=== PATIENT | male | born 1935 | race Caucasian/White ===

== ENCOUNTER 2017-02-09 02:27 | Inpatient (IN) | payer MEDICARE, OTHER ==
--- NOTE | ~2017-02-09 | HP ---
History And Physical [place] [id number] [facility] [place]. [address] NAME: LAMINE GARCIA : 35 STATUS : ADM IN [facility]#: [id number] AGE: 81 ADM/REG DATE : 02/09/17 MR#: [id number] REPORT SERV DATE: 02/09/17 DICTATED BY: KARLY ROBISON DATE: 02/09/17 REPORT STATUS : Draft TRANSCRIBED BY: MODL DATE: 02/09/17 DATE OF ADMISSION: 02/09/2017 CARDIOLOGY ADMISSION HISTORY AND PHYSICAL IDENTIFYING DATA: The patient is an 81-year-old man with a history of abdominal aortic aneurysm status post endovascular repair and no other significant cardiovascular history. CHIEF COMPLAINT: Acute onset substernal chest pain at approximately 1:30 a.m. on 02/09/2017. HISTORY OF PRESENT ILLNESS: Mr. Garcia is an 81-year-old man who denies any previous cardiovascular history. The patient does have a history of peripheral arterial disease. Specifically, the patient had an abdominal aortic aneurysm which was treated with an endovascular stent graft in the past. The patient had at one time been evaluated by Dr. Den Oglesby for symptoms of chest pain. The patient apparently had a cardiovascular workup which included an echocardiogram and a treadmill stress test. These studies were unremarkable according to the patient. The patient awoke early this morning with the abrupt onset of a crushing substernal chest pain. The patient rates this as 10/10 in intensity. He was brought to the [facility] Emergency Room. There, a 12-lead EKG was consistent with an acute evolving anterolateral ST segment elevation myocardial infarction. The patient was transferred emergently via [facility] to [facility] for primary percutaneous coronary intervention. PAST MEDICAL HISTORY: 1. Abdominal aortic aneurysm. 2. History of prostate cancer with radiation-induced proctitis and bladder issues. 3. Chronic pain. PAST SURGICAL HISTORY: 1. Endovascular aneurysm repair. 2. Cholecystectomy. 3. Multiple hernia repairs. 4. Excision of kidney stone. 5. Surgical procedure for rectal fissure. FAMILY HISTORY: Noncontributory. SOCIAL HISTORY: The patient reports a one-half pack per day smoking history times approximately 70 years. The patient denies alcohol use. He is a . ALLERGIES: THE PATIENT REPORTS AN ADVERSE REACTION TO "PAIN MEDICATIONS." HE DOES, HOWEVER, TAKE VICODIN AT HOME. ALSO, OF NOTE, THE PATIENT REPORTS A PREVIOUS ADVERSE REACTION TO ASPIRIN, WHICH CAUSES STOMACH PAIN EVEN AT LOW DOSES. HOME MEDICATIONS: An abbreviated list includes hydrocodone 5 mg/acetaminophen 325 mg one to History And Physical [place] [address] [place]. [address] NAME: LAMINE GARCIA : 35 STATUS : ADM IN PAT#: [id number] AGE: 81 ADM/REG DATE : 02/09/17 MR#: [id number] REPORT SERV DATE: 02/09/17 DICTATED BY: KARLY ROBISON DATE: 02/09/17 REPORT STATUS : Draft TRANSCRIBED BY: EARL DATE: 02/09/17 two tablets q.6 hours as needed for pain. The patient reports he also takes MiraLAX and milk of magnesia. He is on no other medications. REVIEW OF SYSTEMS: An abbreviated review of systems was performed. This is noncontributory except for the pertinent positives and negatives noted in the history of present illness above. PHYSICAL EXAMINATION: VITAL SIGNS: The patient's blood pressure on admission is approximately 95/60 mmHg; heart rate is 90 beats per minute and regular, with frequent ectopy; respiratory rate is 18; oxygen saturation is 98% on 2 L nasal cannula. CONSTITUTIONAL: The patient is a thin, frail, elderly-appearing white man, who appears in minimal distress given the impressive nature of his ECG. EYES: PERRL, EOMI, clear conjunctiva. HEAD/MNT: NCAT with moist mucous membranes and grossly normal hard and soft palate. NECK: Supple with no obvious thyromegaly or lymphadenopathy. CARDIOVASCULAR: There is a regular rhythm with a normal S1 and a physiologically split second heart sound. No significant murmurs, rubs, or gallops are noted. PULMONARY: There is mildly decreased air movement globally. No obvious wheezing, rales, or rhonchi are noted. ABDOMINAL: The abdomen is grossly benign with no obvious organomegaly noted and normoactive bowel sounds. EXTREMITIES: There is no significant clubbing, cyanosis, or edema. MUSCULOSKELETAL: Grossly normal strength and range of motion in all extremities INTEGUMENTARY: Skin appears intact with no bruises, wounds or active lesions noted NEURO/PSYC: Alert and oriented x3, with no dysarthria, facial droop or lateralizing weakness noted. DIAGNOSTIC DATA: 12-lead EKG: The 12-lead EKG obtained from [facility] Emergency Room shows an acute evolving anterolateral ST-segment elevation myocardial infarction with ST- segment elevation in leads V1 through V5 and reciprocal changes in the inferior leads. A previous EKG was not immediately available for comparison. LABORATORY DATA: Labs are pending at this time. ASSESSMENT AND PLAN: 1. Acute anterolateral ST-segment elevation myocardial infarction: The patient will be taken for primary percutaneous coronary intervention. Emergency consent was obtained. Further treatment depending on cardiac catheterization results. 2. Tobacco abuse: The patient will be strongly counseled to stop smoking. [facility] Karly Robison MD History And Physical [address] [address] NAME: LAMINE GARCIA : 35 STATUS : ADM IN PAT#: [id number] AGE: 81 ADM/REG DATE : 02/09/17 MR#: [id number] REPORT SERV DATE: 02/09/17 DICTATED BY: KARLY ROBISON DATE: 02/09/17 REPORT STATUS : Draft TRANSCRIBED BY: EARL DATE: 02/09/17 / [id number] CC: Karly Robison MD
[~2017-02-09 02:27] MED LIST: HALF81 PO; LOP25 PO; LUNESTA2 M1 OR; LUNESTA2 M1 PO; METAMUCIL CAN7 OZ PO; MOMUD PO; NORCO1 TA1 PO; PEP20 PO; PRAVACHOL40 MG PO; PREV30 PO; T PO
[2017-02-09 03:46] LABS: CREATININE 0.6 MG/DL (0.70-1.30)
[2017-02-09 04:40] LABS: BASOPHILS 0.2 %; BASOPHILS ABSOLUTE 0.02 10/3/uL (0.0-0.16); EOSINOPHILS 0.6 %; EOSINOPHILS ABSOLUTE 0.06 10/3/uL (0.0-0.53); HEMATOCRIT 35.3 % (40.0-51.0); HEMOGLOBIN 12.3 g/dL (13.6-17.8); IMMATURE GRANULOCYTES 0.2 %; IMMATURE GRANULOCYTES ABSOLUTE 0.02 10/3/uL (0.0-0.11); LYMPHOCYTES 5.7 %; LYMPHOCYTES ABSOLUTE 0.56 10/3/uL (0.67-4.30); MANUAL DIFF NO %; MEAN CORPUS HGB CONC 34.8 g/dL (32.0-36.0); MEAN CORPUSCULAR HEMOGLOB 33.1 pg (26.0-34.0); MEAN CORPUSCULAR VOLUME 94.9 fL (80-100); MONOCYTES 7.5 %; MONOCYTES ABSOLUTE 0.74 10/3/uL (0.21-1.20); NEUTROPHILS 85.8 %; NEUTROPHILS ABSOLUTE 8.51 10/3/uL (2.02-8.40); PLATELET COUNT 210 10/3/uL (150-400); RBC DISTRIBUTION WIDTH 13.5 % (12.0-16.0); RED CELL COUNT 3.72 10/6/uL (4.7-6.1); WHITE BLOOD CELLS 9.9 10/3/uL (4.5-10.5)
[2017-02-09 04:47] LABS: INTERNATIONAL NORMAL RATI 1.5 UNITS (-)
[2017-02-09 04:58] LABS: BUN (BLOOD UREA NITROGEN) 14 MG/DL (6-23); CALCIUM, SERUM 7.9 MG/DL (8.5-10.4); CHLORIDE, SERUM 100 MMOL/L (96-112); CREATININE 0.68 MG/DL (0.70-1.30); GFR AFRICAN AMERICAN 104 ML/MIN (>=60); GFR NON AFRICAN AMERICAN 90 ML/MIN (>=60); GLUCOSE, SERUM 118 MG/DL (60-99); POTASSIUM, SERUM 3.5 MMOL/L (3.5-5.3)
[2017-02-09 04:59] LABS: CHEST PAIN PROFILE TAT 0 Hrs 22 Mins; CO2 (CARBON DIOXIDE) 22 MMOL/L (24-34); SODIUM, SERUM 132 MMOL/L (135-148)
[2017-02-09 05:01] LABS: PARTIAL THROMBO TIME > 150.0 SEC (22.5-37.2)
[2017-02-09 05:49] LABS: CHOL/HDL RATIO(NOT ORDER) 2.2 (0-5); CHOLESTEROL 110 MG/DL (< 200); CK-MB 90.9 NG/ML; CPK 975 U/L (0-200); HDL CHOLESTEROL 49 MG/DL (> 39); LDL CHOLESTEROL 56 MG/DL (< 130); NON-HDL CHOLESTEROL 61 MG/DL (< 160); TRIGLYCERIDE 29 MG/DL (< 150)
[2017-02-09 05:53] LABS: CKMB INDEX (NOT ORD) 9.3
[2017-02-09] MEDS ORDERED: NORCO1 TA1 PO (12:21)
[2017-02-09] MEDS ORDERED: MOMUD PO (12:22)
[2017-02-09] MEDS ORDERED: MIRALAX POWDER1 PKT PO (12:22)
[2017-02-09 14:01] LABS: CK-MB 399.2 NG/ML
[2017-02-09 14:04] LABS: CKMB INDEX (NOT ORD) 10.7
[2017-02-09 21:39] LABS: CK-MB 209.3 NG/ML
[2017-02-09 21:40] LABS: CKMB INDEX (NOT ORD) 10.1
[2017-02-10 06:01] LABS: BASOPHILS 0.1 %; BASOPHILS ABSOLUTE 0.01 10/3/uL (0.0-0.16); EOSINOPHILS ABSOLUTE 0.21 10/3/uL (0.0-0.53); HEMOGLOBIN 12.9 g/dL (13.6-17.8); IMMATURE GRANULOCYTES 0.4 %; IMMATURE GRANULOCYTES ABSOLUTE 0.04 10/3/uL (0.0-0.11); LYMPHOCYTES 7.8 %; LYMPHOCYTES ABSOLUTE 0.83 10/3/uL (0.67-4.30); MEAN CORPUSCULAR VOLUME 97.3 fL (80-100); MEAN PLATELET VOLUME 9.6 fL (9.2-13.0); MONOCYTES ABSOLUTE 1.17 10/3/uL (0.21-1.20); NEUTROPHILS 78.7 %; NEUTROPHILS ABSOLUTE 8.35 10/3/uL (2.02-8.40); PLATELET COUNT 229 10/3/uL (150-400); RBC DISTRIBUTION WIDTH 14.1 % (12.0-16.0); RED CELL COUNT 4.03 10/6/uL (4.7-6.1); WHITE BLOOD CELLS 10.6 10/3/uL (4.5-10.5)
[2017-02-10 06:07] LABS: HEMATOCRIT 39.2 % (40.0-51.0); MANUAL DIFF NO %; MEAN CORPUS HGB CONC 32.9 g/dL (32.0-36.0)
[2017-02-10 06:14] LABS: CHLORIDE, SERUM 103 MMOL/L (96-112); CK-MB 71.8 NG/ML; CPK 1000 U/L (0-200); CREATININE 0.92 MG/DL (0.70-1.30); GFR AFRICAN AMERICAN 90 ML/MIN (>=60); GFR NON AFRICAN AMERICAN 78 ML/MIN (>=60)
[2017-02-10 06:15] LABS: BUN (BLOOD UREA NITROGEN) 20 MG/DL (6-23); CALCIUM, SERUM 8.9 MG/DL (8.5-10.4); CKMB INDEX (NOT ORD) 7.2; CO2 (CARBON DIOXIDE) 28 MMOL/L (24-34); GLUCOSE, SERUM 88 MG/DL (60-99); POTASSIUM, SERUM 4.6 MMOL/L (3.5-5.3); SODIUM, SERUM 139 MMOL/L (135-148)
[2017-02-11 05:45] LABS: BASOPHILS 0.1 %; BASOPHILS ABSOLUTE 0.01 10/3/uL (0.0-0.16); EOSINOPHILS 2.2 %; EOSINOPHILS ABSOLUTE 0.21 10/3/uL (0.0-0.53); HEMATOCRIT 37.6 % (40.0-51.0); HEMOGLOBIN 12.6 g/dL (13.6-17.8); IMMATURE GRANULOCYTES 0.2 %; IMMATURE GRANULOCYTES ABSOLUTE 0.02 10/3/uL (0.0-0.11); LYMPHOCYTES 13.3 %; LYMPHOCYTES ABSOLUTE 1.26 10/3/uL (0.67-4.30); MEAN CORPUS HGB CONC 33.5 g/dL (32.0-36.0); MEAN CORPUSCULAR HEMOGLOB 32.1 pg (26.0-34.0); MEAN CORPUSCULAR VOLUME 95.7 fL (80-100); MEAN PLATELET VOLUME 9.8 fL (9.2-13.0); MONOCYTES 10.6 %; NEUTROPHILS 73.6 %; NEUTROPHILS ABSOLUTE 6.94 10/3/uL (2.02-8.40); PLATELET COUNT 206 10/3/uL (150-400); RED CELL COUNT 3.93 10/6/uL (4.7-6.1); WHITE BLOOD CELLS 9.4 10/3/uL (4.5-10.5)
[2017-02-11 05:48] LABS: MANUAL DIFF NO %
[2017-02-11 05:59] LABS: BUN (BLOOD UREA NITROGEN) 19 MG/DL (6-23); CALCIUM, SERUM 8.5 MG/DL (8.5-10.4); CHLORIDE, SERUM 101 MMOL/L (96-112); CO2 (CARBON DIOXIDE) 27 MMOL/L (24-34); CREATININE 0.96 MG/DL (0.70-1.30); GFR AFRICAN AMERICAN 86 ML/MIN (>=60); GFR NON AFRICAN AMERICAN 74 ML/MIN (>=60); GLUCOSE, SERUM 94 MG/DL (60-99); POTASSIUM, SERUM 3.9 MMOL/L (3.5-5.3); SODIUM, SERUM 135 MMOL/L (135-148)
[2017-02-11] MEDS ORDERED: PROTONIX PO (12:06)
[2017-02-11] MEDS ORDERED: PRIN5 PO (12:06)
[2017-02-11] MEDS ORDERED: L40 PO (12:07)
[2017-02-11] MEDS ORDERED: ASAB PO (12:07)
[2017-02-11] MEDS ORDERED: LIPITOR40 PO (12:07)
[2017-02-11] MEDS ORDERED: COREG3 PO (12:08)
[2017-02-11] MEDS ORDERED: NITROSTAT0.4 MG SL (12:09)
[2017-05-18] MEDS ORDERED: NORCO1 TA1 PO (11:39)
[2017-05-18] MEDS ORDERED: NITROSTAT0.4 MG SL (11:40)
[2017-05-18] MEDS ORDERED: PROTONIX PO (11:40)
[2017-05-18] MEDS ORDERED: BRILINTA90 MG PO (11:40)
[2017-05-18] MEDS ORDERED: MIRALAX POWDER1 PKT PO (11:41)
[2017-05-18] MEDS ORDERED: MOMUD PO (11:41)
[2017-05-20] MEDS ORDERED: LIPITOR40 PO (15:56)
[2017-05-20] MEDS ORDERED: L40 PO (15:57)
[2017-05-20] MEDS ORDERED: COREG3 PO (15:57)
[2017-05-20] MEDS ORDERED: PRIN5 PO (15:58)
== END 2017-02-11 13:25 | disposition home or self-care (01) | DRG 246 ==
LOC: SSU2 02:27 → CCU 04:51 → 5NO 02-10 15:00
PROVIDERS: Internal Medicine Cardiovascular Disease
DX: I21.09 ST elevation (STEMI) myocardial infarction involving other coronary artery of anterior wall (principal); E43 Unspecified severe protein-calorie malnutrition; I50.21 Acute systolic (congestive) heart failure; I73.9 Peripheral vascular disease, unspecified; F17.210 Nicotine dependence, cigarettes, uncomplicated; G89.29 Other chronic pain; Z85.46 Personal history of malignant neoplasm of prostate; Z98.890 Other specified postprocedural states; Z92.3 Personal history of irradiation; Z88.5 Allergy status to narcotic agent; Z88.6 Allergy status to analgesic agent; Z88.2 Allergy status to sulfonamides; Z88.8 Allergy status to other drugs, medicaments and biological substances; Z88.1 Allergy status to other antibiotic agents; Z68.21 Body mass index [BMI] 21.0-21.9, adult
CPT/HCPCS: 71010; 80048; 80061; 82550; 82553; 83735; 83880; 84132; 84295; 84484; 85025; 85347; 85610; 85730; 93005; 93458; 94640; 99152; 99153; A9270-GY; C1713; C1725; C1769; C1874; C1887; C1894; C8929; C9606; J0583; J2250; J3010; Q9957; Q9967